=== PATIENT | female | born 2000 | race Caucasian/White ===

== ENCOUNTER 2021-10-26 09:08 | Observation (INO) | payer OTHER ==
[~2021-10-26] VITALS: Ht 160 cm; Wt 114.0 kg
[2021-10-26 12:08] LABS: BASOPHILS ABSOLUTE AUTO 0.05 K/mm3 (0.00-0.23); BASOPHILS PERCENT AUTO 1 % (0-2); EOSINOPHILS PERCENT AUTO 1 % (0-6); Hematocrit 41.3 % (33.0-51.0); Hemoglobin 14.5 g/dL (11.5-16.0); IMMATURE GRAN ABSOLUTE AUTO 0.02 K/mm3 (0.00-0.10); IMMATURE GRAN PERCENT AUTO 0 % (0-1); LYMPHOCYTES ABSOLUTE AUTO 2.73 K/mm3 (0.84-5.20); LYMPHOCYTES PERCENT AUTO 30 % (21-46); MONOCYTES ABSOLUTE AUTO 0.47 K/mm3 (0.16-1.47); MONOCYTES PERCENT AUTO 5 % (4-13); Mean Corpuscular HGB Conc 35.1 g/dL (31.5-36.5); Mean Corpuscular Volume 83 fL (80-100); Mean Platelet Volume 9.2 fL (9.1-12.4); NEUTROPHILS ABSOLUTE AUTO 5.75 K/mm3 (1.96-9.15); NEUTROPHILS PERCENT AUTO 63 % (41-73); Platelet Count 276 K/mm3 (150-400); RDW Coefficient Variation 11.9 % (11.7-14.2); RDW Standard Deviation 35.8 fL (35.1-46.3); White Blood Cell Count 9.12 K/mm3 (4.00-11.30)
[2021-10-26 12:11] LABS: Bilirubin, Total 0.2 mg/dL (0.1-1.0); Bun/Creatinine Ratio 11.2 (12.0-20.0); Creatinine, Blood 0.54 mg/dL (0.40-1.00); Globulin, Blood 3.9 g/dL (2.2-4.0); Total Protein, Blood 7.9 g/dL (6.4-8.2)
--- NOTE | 2021-10-27 05:06 | NUR ---
SHIFT SUMMARY PT ER ADMIT THIS SHIFT AFTER ARRIVING TO ER COMPLAING OF SHOULDER PAIN UPON FUTHER WORK UP IT WAS REFERRED PAIN FROM [facility]. PT TO HAVE LAP HARDY TODAY. PT HAS DENIED PAIN T/O SHIFT, SHE HAS ALSO DENIED NAUSEA. PT MEDICATED IN ER BUT HAS NOT REQUIRED ANY MEDICATIONS FOR PAIN OR NAUSEA SINCE ADMISSION. PT HAS BEEN INDEPENDENT IN THE ROOM. VITALS STABLE. PT HAS BEEN NPO SINCE MIGNIGHT. INFECTION PREVENTION INTERVENION COMPLETE. PT TESTED FOR COVID. IVF INFUSING. BED IN LOWEST POSITION, CALL LIGHT WITHIN REACH.
--- NOTE | 2021-10-27 09:45 | NUR ---
PT TO OR AT ABOUT 0968
--- NOTE | 2021-10-27 09:51 | NUR ---
PT HAS ONE IV SITE THAT IS A 20 G IN THE L FA THAT FLOWS WELL TO GRAVITY.
--- NOTE | 2021-10-27 13:34 | NUR ---
POST OP: REPORT RECEIVED FROM RADHA, HEAD BONE GRINDER. PT TO UNIT AT ABOUT 1320. PT IS DROWSY AND ORIENTED, NOTED HTN, OTHERWISE VSS, WILL MONITOR. PT DENIES N/V OR PAIN AT THIS TIME. PT MOM AT BEDSIDE WILL CTM.
[2021-10-27] MEDS ORDERED: HYDROCODONE-AC1 EA18 PO (16:09)
--- NOTE | 2021-10-27 16:41 | NUR ---
DISCHARGE: PT ABLE TO EAT, VOID AND AMBULATE. PAIN MANAGED. PACKET PRINTED AND PT EDUCATED. PT MOM GIVEN SCRIPT, NO MEDS NEEDED CALLED IN. PT LEFT UNIT VIA WHEELCHAIR AT ABOUT 1620
--- NOTE | 2021-10-28 13:36 | NUR ---
10/28/21 1336 Deanne Wakefield VERIFICATIONS: EDIT CHART.
== END 2021-10-27 16:27 | disposition home or self-care (01) ==
LOC: ER 09:08 → SURS 19:14
PROVIDERS: Physician Assistant; ADMIT Surgery
PROC: 0FT44ZZ Resection of Gallbladder, Percutaneous Endoscopic Approach (ICD-10-PCS; principal; 2021-10-27 10:30)
DX: K80.12 Calculus of gallbladder with acute and chronic cholecystitis without obstruction (principal); E66.01 Morbid (severe) obesity due to excess calories; M25.511 Pain in right shoulder; J98.11 Atelectasis
CPT/HCPCS: 71046; 76705; 80053; 81025; 83690; 85025; 88304; 93005; 93010; 96365; 96375; 99285-25; A9270; G0378; J0295; J1885; J2250; J2405; J2704; J2795; J3010; J7120

== ENCOUNTER → 2022-03-22 | Outpatient (CLI) | payer OTHER ==
[~2022-03-22] MED LIST: HYDROCODONE-AC1 EA18 PO
[2022-03-23 10:26] LABS: Candida species (DNA Probe) Negative (NEGATIVE); G. vaginalis (DNA Probe) Negative (NEGATIVE); T. vaginalis (DNA Probe) Negative (NEGATIVE)
[2022-03-24 16:10] LABS: CHLAMYDIA BY NAA Negative (Negative); GONOCOCCUS BY NAA Negative (Negative); TRICH VAG BY NAA Negative (Negative)
== END | disposition home or self-care (01) ==
LOC: LAB SHORT 10:55
PROVIDERS: Family Medicine
DX: Z11.3 Encounter for screening for infections with a predominantly sexual mode of transmission (principal)
CPT/HCPCS: 87480; 87491; 87510; 87591; 87660; 87661

== ENCOUNTER → 2022-05-26 | Outpatient (CLI) | payer OTHER ==
[2022-05-27 11:41] LABS: Candida species (DNA Probe) Positive (NEGATIVE); G. vaginalis (DNA Probe) Positive (NEGATIVE); T. vaginalis (DNA Probe) Negative (NEGATIVE)
== END | disposition home or self-care (01) ==
LOC: LAB SHORT 10:50
PROVIDERS: Family Medicine
DX: N76.0 Acute vaginitis (principal)
CPT/HCPCS: 87480; 87510; 87660

== ENCOUNTER → 2023-04-04 | Outpatient (CLI) | payer OTHER ==
[2023-04-05 12:14] LABS: Candida species (DNA Probe) Negative (NEGATIVE); G. vaginalis (DNA Probe) Negative (NEGATIVE); T. vaginalis (DNA Probe) Negative (NEGATIVE)
== END ==
LOC: LAB SHORT 09:24 → LAB 09:24
PROVIDERS: Family Medicine
DX: Z01.419 Encounter for gynecological examination (general) (routine) without abnormal findings (principal); B37.31 Acute candidiasis of vulva and vagina
CPT/HCPCS: 87480; 87510; 87660

== ENCOUNTER → 2024-01-27 | Outpatient (CLI) | payer OTHER ==
[~2024-01-27] MED LIST changes: +Budeprion Xl300 MG PO; +GLIP5ER PO; +HYDHCL25 PO; +ONDA4ODT MM; +PIOGLITAZONE HC15 MG PO; +Prinivil10 MG PO; +ROSUVASTATIN CA40 MG PO; +RYBELSUS14 MG PO; +STEGLATRO15 MG PO; +Venlafaxine HC100 MG PO
[2024-01-27 13:49] LABS: BASOPHILS ABSOLUTE AUTO 0.07 K/mm3 (0.00-0.23); BASOPHILS PERCENT AUTO 1 % (0-2); EOSINOPHILS ABSOLUTE AUTO 0.08 K/mm3 (0.00-0.68); EOSINOPHILS PERCENT AUTO 1 % (0-6); Hematocrit 42.9 % (33.0-51.0); Hemoglobin 15.2 g/dL (11.5-16.0); IMMATURE GRAN ABSOLUTE AUTO 0.02 K/mm3 (0.00-0.10); IMMATURE GRAN PERCENT AUTO 0 % (0-1); LYMPHOCYTES ABSOLUTE AUTO 2.77 K/mm3 (0.84-5.20); LYMPHOCYTES PERCENT AUTO 38 % (21-46); MONOCYTES ABSOLUTE AUTO 0.52 K/mm3 (0.16-1.47); MONOCYTES PERCENT AUTO 7 % (4-13); Mean Corpuscular HGB 29.3 pg (26.0-34.0); Mean Corpuscular HGB Conc 35.4 g/dL (31.5-36.5); Mean Corpuscular Volume 83 fL (80-100); Mean Platelet Volume 9.3 fL (9.1-12.4); NEUTROPHILS ABSOLUTE AUTO 3.82 K/mm3 (1.96-9.15); NEUTROPHILS PERCENT AUTO 53 % (41-73); Platelet Count 235 K/mm3 (150-400); RDW Coefficient Variation 12.2 % (11.7-14.2); RDW Standard Deviation 37.1 fL (35.1-46.3); Red Blood Cell Count 5.18 M/mm3 (3.80-5.20); White Blood Cell Count 7.28 K/mm3 (4.00-11.30)
== END ==
LOC: LAB 13:46 → LAB SHORT 13:46
PROVIDERS: Physician Assistant
DX: R10.9 Unspecified abdominal pain (principal)
CPT/HCPCS: 85025; 87086